=== PATIENT | female | born 1980 | race African-American/Black ===

== ENCOUNTER 2018-05-20 22:07 | Emergency (ER) | payer SELFPAY ==
[~2018-05-20] VITALS: Ht 177.8 cm; Wt 72.6 kg
--- OUTSIDE RECORDS SUMMARY | 2018-05-20 22:15 | XMS REPORT ---
Author NONA Andersen [facility] eClinicalWorks Address Unknown Phone Unavailable Care Team Providers Care Spooling Machine Operator Name Role Phone NONA CHOU CP Unavailable Allergies, Adverse Reactions, Alerts Substance Reaction Event Type N.K.D.A. Info Not Available Non Drug Allergy Problems Problem Type Condition Code Onset Dates Condition Status Assessment Trichomonal vaginitis A59.01 Active Assessment Other specified bacterial agents as the cause of diseases classified elsewhere B96.89 Active Assessment Screening for STD (sexually transmitted disease) Z11.3 Active Assessment Acute vaginitis N76.0 Active Medications Medication Code System Code Instructions Start Date End Date Status Dosage Metronidazole [facility] [address]-61 500 MG Orally BID Feb 13, 2016 Feb 20, 2016 1 tablet Procedures Procedure Coding System Code Date ACUTE HEPATITIS PANEL CPT-4 32393 Feb 13, 2016 No Charge CPT-4 33839 Feb 13, 2016 BLOOD SEROLOGY, QUALITATIVE CPT-4 02907 Feb 13, 2016 Office Visit, New Pt., Level 3 CPT-4 21974 Feb 13, 2016 TRICHOMONAS ASSAY W/OPTIC CPT-4 55733 Feb 13, 2016 CULTURE, BACTERIA, OTHER CPT-4 87344 Feb 13, 2016 VENIPUNCT, ROUTINE* CPT-4 12988 Feb 13, 2016 ONTIVEROS VAG, DNA, DIR PROBE CPT-4 08172 Feb 13, 2016 Vital Signs Date/Time: Feb 13, 2016 Cardiac Monitoring Heart Rate 84 bpm Weight 153.2 lbs Height 69 in BMI 22.62 Index Blood Pressure Diastolic 78 mmHg Blood Pressure Systolic 110 mmHg Results Name Result Date Reference Range Unit Abnormality Flag BACTERIAL VAGINOSIS (IN HOUSE) ----Lot # [id number] ----Exp date [id number] ----RESULTS Positive [id number] ----Control + [id number] ROUTINE VENIPUNCTURE TRICHOMONAS (IN HOUSE) ----Exp date [id number] ----Control + [id number] ----Lot # [id number] ----TRICHOMONAS Positive [id number] Summary Purpose eClinicalWorks Submission
--- OUTSIDE RECORDS SUMMARY | 2018-05-20 22:15 | XMS REPORT ---
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 Active 60110718 Problem Generalized anxiety disorder F41.1 Active 23611086 ALLERGIES No Known Allergies ENCOUNTERS Encounter Location Date Diagnosis [place] [address] [address] Feb, [facility] [address] [place] [id number] [place] [address] Feb, [facility] [address] [address] Jan, Cigarette nicotine dependence without complication F17.210 ; Yeast dermatitis B37.2 and Generalized anxiety disorder F41.1 [place] [address] [address] Sep, Rib pain R07.81 ; Cigarette nicotine dependence without complication F17.210 ; Generalized anxiety disorder F41.1 ; Screening for hyperlipidemia Z13.220 ; Screening for diabetes mellitus Z13.1 and Screening for other and unspecified deficiency anemia Z13.0 [place] [address] [address] Aug, Screening for STD sexually transmitted disease Z11.3 and Well woman exam with routine gynecological exam Z01.419 [place] [address] [place] [id number] [place] [address] Sep, Severe single current episode of major depressive disorder, 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.2 and Generalized anxiety disorder F41.1 [place] [address] [facility] [id number] [address] Sep, Screening for STD sexually transmitted disease Z11.3 ; Screening for diabetes mellitus (DM) Z13.1 ; Screening for lipid disorders Z13.220 and Well woman exam with routine gynecological exam Z01.419 [place] [address] [id number] [address] Jan, [facility] [address] [facility] [id number] [address] Jan, Screening for STD sexually transmitted disease Z11.3 ; Trichomonal vaginitis A59.01 ; Other specified bacterial agents as the cause of diseases classified elsewhere B96.89 and Acute vaginitis N76.0 IMMUNIZATIONS No Known Immunizations SOCIAL HISTORY Never Assessed REASON FOR VISIT Depression Charles Han MA PLAN OF CARE Activity Details Follow Up 4 Weeks Reason:smoking cessation VITAL SIGNS Height 69 in 2018-02-10 Weight 153.6 lbs 2018-02-10 Temperature 97.4 degrees Fahrenheit 2018-02-10 Heart Rate 96 bpm 2018-02-10 Respiratory Rate 18 2018-02-10 BMI 22.68 kg/m2 2018-02-10 Blood pressure systolic 118 mmHg 2018-02-10 Blood pressure diastolic 68 mmHg 2018-02-10 MEDICATIONS Medication Instructions Dosage Frequency Start Date End Date Duration Status Chantix Starting Month Juan Pablo 0.5 MG X 11 & 1 MG X 42 Orally as directed Days 1- 3: 0.5mg once daily, Days 4-7: 05mg twice daily. Days 8-30: 1mg twice daily Jan, Active HydrOXYzine HCl 25 MG Orally every 8 hrs 1 tablet as needed 8h Jan, 30 day(s) Active Fluconazole 150 MG Orally one time 1 tablet Jan, 1 dose Active RESULTS No Results PROCEDURES No Known procedures INSTRUCTIONS MEDICATIONS ADMINISTERED No Known Medications MEDICAL (GENERAL) HISTORY Type Description Date Surgical History section x3 Surgical History tubal ligation Hospitalization History child
--- OUTSIDE RECORDS SUMMARY | 2018-05-20 22:15 | XMS REPORT ---
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 Active 84587107 ALLERGIES No Known Allergies ENCOUNTERS Encounter Location Date Diagnosis [facility] [id number] [address] Sep, Severe single current episode of major depressive disorder, 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.2 and Generalized anxiety disorder F41.1 [facility] [address] [place] [address] Sep, Screening for STD sexually transmitted disease Z11.3 ; Screening for diabetes mellitus (DM) Z13.1 ; Screening for lipid disorders Z13.220 and Well woman exam with routine gynecological exam Z01.419 [place] [address] [address] Jan, [facility] [address] [place] [address] Jan, Screening for STD sexually transmitted disease Z11.3 ; Trichomonal vaginitis A59.01 ; Other specified bacterial agents as the cause of diseases classified elsewhere B96.89 and Acute vaginitis N76.0 IMMUNIZATIONS No Known Immunizations SOCIAL HISTORY Never Assessed REASON FOR VISIT Well Woman Exam-JARED Charles PLAN OF CARE Activity Details Follow Up 1 Year for Well woman with Ronal Reason: VITAL SIGNS Height 69 in 2016-09-26 Weight 156 lbs 2016-09-26 Temperature 98 degrees Fahrenheit 2016-09-26 Heart Rate 90 bpm 2016-09-26 Respiratory Rate 18 2016-09-26 BMI 23.03 kg/m2 2016-09-26 Blood pressure systolic 130 mmHg 2016-09-26 Blood pressure diastolic 70 mmHg 2016-09-26 MEDICATIONS Unknown Medications RESULTS Name Result Date Reference Range A1C 2016-09-26 Hemoglobin A1c 5.5 4.8-5.6 LIPID PANEL 2016-09-26 Cholesterol, Total 125 100-199 Triglycerides 64 0-149 HDL Cholesterol 67 >39 VLDL Cholesterol Nicolas 13 5-40 LDL Cholesterol Calc 45 0-99 TRICHOMONAS (IN HOUSE) 2016-09-26 TRICHOMONAS Negative Control + Lot # [id number] Exp date 10/2017 BACTERIAL VAGINOSIS (IN HOUSE) 2016-09-26 RESULTS Negative Control + Lot # [id number] Exp date 04/2017 CULTURE, GENITAL 2016-09-26 Genital Culture, Routine Final report Result 1 HEP C ANTIBODY (STATE) 2016-09-26 RESULTS non reactive SYPHILIS (STATE) 2016-09-26 HIV (STATE) 2016-09-26 GC/CHLAM PROBE (STATE) 2016-09-26 CHLAMYDIA negative GC negative HEP B SURFACE ANTIGEN (STATE) 2016-09-26 HEP B ANTIBODY non reactive HEP B ANTIBODY (RML) HEP B ANTIBODY (STATE) PROCEDURES Procedure Date Ordered Result Body Site No Charge September 26, 2016 LIPID PANEL September 26, 2016 CULTURE, BACTERIA, OTHER September 26, 2016 VENIPUNCT, ROUTINE* September 26, 2016 GLYCATED HEMOGLOBIN TEST September 26, 2016 TRICHOMONAS ASSAY W/OPTIC September 26, 2016 ONTIVEROS VAG, DNA, DIR PROBE September 26, 2016 INSTRUCTIONS MEDICATIONS ADMINISTERED No Known Medications MEDICAL (GENERAL) HISTORY Type Description Date Surgical History section x3 Surgical History tubal ligation Hospitalization History child
--- OUTSIDE RECORDS SUMMARY | 2018-05-20 22:15 | XMS REPORT ---
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 Active 12348277 ALLERGIES No Information ENCOUNTERS Encounter Location Date Diagnosis [address] [place] [address] Jun, [place] [id number] [place] [address] Sep, Severe single current episode of major depressive disorder, 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.2 and Generalized anxiety disorder F41.1 [place] [id number] [place] [address] Sep, Screening for STD sexually transmitted disease Z11.3 ; Screening for diabetes mellitus (DM) Z13.1 ; Screening for lipid disorders Z13.220 and Well woman exam with routine gynecological exam Z01.419 [address] [place] [address] Jan, [place] [address] [place] [address] Jan, Screening for STD sexually transmitted disease Z11.3 ; Trichomonal vaginitis A59.01 ; Other specified bacterial agents as the cause of diseases classified elsewhere B96.89 and Acute vaginitis N76.0 IMMUNIZATIONS No Known Immunizations SOCIAL HISTORY Never Assessed REASON FOR VISIT intake PLAN OF CARE Activity Details Follow Up prn Reason:Anxiety, anger, depression VITAL SIGNS MEDICATIONS Unknown Medications RESULTS No Results PROCEDURES Procedure Date Ordered Result Body Site Psych diagnostic evaluation, new patient September 27, 2016 INSTRUCTIONS MEDICATIONS ADMINISTERED No Known Medications MEDICAL (GENERAL) HISTORY Type Description Date Surgical History section x3 Surgical History tubal ligation Hospitalization History child
--- OUTSIDE RECORDS SUMMARY | 2018-05-20 22:15 | XMS REPORT ---
Author Author NONA CHOU [facility] Address [address] [place] [address] Care Team Providers Care Electrophysiology Scientist Name Role Phone NONA CHOU Unavailable PROBLEMS Unknown Problems ALLERGIES Unknown Allergies SOCIAL HISTORY No smoking Hx information available PLAN OF CARE VITAL SIGNS MEDICATIONS Medication Instructions Dosage Frequency Start Date End Date Duration Status Metronidazole Jan, Feb, Active RESULTS No Results PROCEDURES No Known procedures IMMUNIZATIONS No Known Immunizations
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
--- OUTSIDE RECORDS SUMMARY | 2018-05-20 22:15 | XMS REPORT ---
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.2 Active 02718208 Problem Generalized anxiety disorder F41.1 Active 84381035 ALLERGIES No Known Allergies ENCOUNTERS Encounter Location Date Diagnosis [place] [address] [address] Sep, Rib pain R07.81 ; Cigarette nicotine dependence without complication F17.210 ; Generalized anxiety disorder F41.1 ; Screening for hyperlipidemia Z13.220 ; Screening for diabetes mellitus Z13.1 and Screening for other and unspecified deficiency anemia Z13.0 [place] [address] [place] [id number] [place] [address] Aug, Screening for STD sexually transmitted disease Z11.3 and Well woman exam with routine gynecological exam Z01.419 [place] [address] [place] [id number] [place] [address] 14 Sep, 2016 Severe single current episode of major depressive disorder, 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.2 and Generalized anxiety disorder F41.1 [place] [address] [place] [id number] [place] [address] 13 Sep, 2016 Screening for STD sexually transmitted disease Z11.3 ; Screening for diabetes mellitus (DM) Z13.1 ; Screening for lipid disorders Z13.220 and Well woman exam with routine gynecological exam Z01.419 [place] [address] [place] [id number] [place] [address] Jan, [facility] [address] [facility] [id number] [place] [address] Jan, Screening for STD sexually transmitted disease Z11.3 ; Trichomonal vaginitis A59.01 ; Other specified bacterial agents as the cause of diseases classified elsewhere B96.89 and Acute vaginitis N76.0 IMMUNIZATIONS No Known Immunizations SOCIAL HISTORY Never Assessed REASON FOR VISIT Well Woman Exam-COSME Fox, Wants something to help her quit smoking PLAN OF CARE Activity Details Follow Up 1 Year Reason:annual well woman VITAL SIGNS Height 69 in 2017-09-08 Weight 149.3 lbs 2017-09-08 Temperature 98.9 degrees Fahrenheit 2017-09-08 Heart Rate 80 bpm 2017-09-08 Respiratory Rate 18 2017-09-08 BMI 22.05 kg/m2 2017-09-08 Blood pressure systolic 130 mmHg 2017-09-08 Blood pressure diastolic 72 mmHg 2017-09-08 MEDICATIONS No Known Medications RESULTS No Results PROCEDURES Procedure Date Ordered Result Body Site SPECIMEN HANDLING September 08, 2017 Bacterial Vaginosis In House September 08, 2017 VENIPUNCT, ROUTINE* September 08, 2017 No Charge September 08, 2017 TRICHOMONAS ASSAY W/OPTIC September 08, 2017 URINALYSIS, AUTO, W/O SCOPE September 08, 2017 CULTURE, BACTERIA, OTHER September 08, 2017 INSTRUCTIONS MEDICATIONS ADMINISTERED No Known Medications MEDICAL (GENERAL) HISTORY Type Description Date Surgical History section x3 Surgical History tubal ligation Hospitalization History child
--- NOTE | 2018-05-20 23:13 | NUR ---
pt sleeping in waiting room.
[2018-05-20 23:38] LABS: BILIRUBIN,URINE NEGATIVE (NEGATIVE); CLARITY,URINE CLEAR; COLOR,URINE YELLOW; GLUCOSE, URINE (UA) NEGATIVE (NEGATIVE); KETONES,URINE NEGATIVE (NEGATIVE); LEUKOCYTE ESTERASE ,URINE NEGATIVE (NEGATIVE); NITRITE,URINE NEGATIVE (NEGATIVE); PH,URINE 7 (5-9); PROTEIN,URINE NEGATIVE (NEGATIVE); UROBILINOGEN,URINE NORMAL (NORMAL)
[2018-05-20 23:47] LABS: BACTERIA,URINE TRACE /HPF; RBC,URINE 0-2 /HPF; SQUAMOUS EPITHELIAL CELL,UR RARE /HPF
[2018-05-21 00:55] LABS: BASOPHILS % (AUTO) 1 % (0-10); EOSINOPHILS # (AUTO) 0.2 10^3/uL (0.0-0.3); EOSINOPHILS % (AUTO) 2 % (0-10); HEMATOCRIT 37 % (35-52); HEMOGLOBIN 12.7 G/DL (11.5-16.0); LYMPHOCYTES # (AUTO) 2.7 X 10^3 (1.0-4.0); LYMPHOCYTES % (AUTO) 31 % (12-44); MEAN CORPUSCULAR HEMOGLOBIN 32 PG (25-34); MEAN CORPUSCULAR HGB CONC 34 G/DL (32-36); MEAN CORPUSCULAR VOLUME 92 FL (80-99); MEAN PLATELET VOLUME 8.7 FL (7.4-10.4); MONOCYTES # (AUTO) 0.9 X 10^3 (0.0-1.0); MONOCYTES % (AUTO) 10 % (0-12); NEUTROPHILS # (AUTO) 5.1 X 10^3 (1.8-7.8); NEUTROPHILS % (AUTO) 57 % (42-75); PLATELET COUNT 348 10^3/uL (130-400); RED CELL DISTRIBUTION WIDTH 13.1 % (10.0-14.5); WHITE BLOOD COUNT 8.8 10^3/uL (4.3-11.0)
[2018-05-21 01:13] LABS: ALANINE AMINOTRANSFERASE 10 U/L (0-55); ALBUMIN 3.9 GM/DL (3.2-4.5); ALKALINE PHOSPHATASE 32 U/L (40-136); AMYLASE 55 U/L (25-125); BILIRUBIN,TOTAL 0.3 MG/DL (0.1-1.0); BUN/CREATININE RATIO 20; CALCIUM 8.8 MG/DL (8.5-10.1); CARBON DIOXIDE 24 MMOL/L (21-32); CHLORIDE 107 MMOL/L (98-107); GFR ESTIMATED > 60; GLUCOSE 119 MG/DL (70-105); LIPASE 36 U/L (8-78); SODIUM 139 MMOL/L (135-145); TOTAL PROTEIN 6.2 GM/DL (6.4-8.2)
[2018-05-21] MEDS ORDERED: cefTRIAXone FOR IV USE 1,000 MG in WATER (STERILE) FOR INJECTION 10 ML IV ONE (01:30)
[2018-05-21] MEDS ORDERED: AZITHROMYCIN 250 MG TAB (ZITHROMAX) PO STA (01:30)
[2018-05-21] MEDS ORDERED: AZITHROMYCIN 250 MG TAB (ZITHROMAX) PO ONE (01:41)
[2018-05-21] MEDS ORDERED: WATER (STERILE) FOR INJECTION 10 ML ONE (01:42)
[2018-05-21] MEDS ORDERED: cefTRIAXone 1,000 MG IV (ROCEPHIN) VIAL ONE (01:42)
--- NOTE | 2018-05-21 01:46 | ED Abdominal Pain ---
General Chief Complaint: Abdominal/GI Problems Stated Complaint: ABD CRAMPING Nursing Triage Note: lower abdominal pain, urinary frequency. Sepsis Screen: No Definite Risk Allergies and Home Medications Allergies Coded Allergies: No Known Drug Allergies (Unverified , 05/20/18) Home Medications No Active Prescriptions or Reported Meds Past Xowcczg-Kfmhme-Qlnnha Hx Patient Social History Alcohol Use: Rarely Uses Recreational Drug Use: Yes Drug of Choice: cannibus Smoking Status: Current Everyday Smoker Type Used: Cigarettes 2nd Hand Smoke Exposure: Yes Recent Foreign Travel: No Contact w/Someone Who Travel: No Recent Infectious Disease Expo: No Recent Hopitalizations: No Seasonal Allergies Seasonal Allergies: No Past Medical History Surgeries: Yes Section Respiratory: No Cardiac: No Neurological: No Last Menstrual Period: May 06, 2018 Genitourinary: No Gastrointestinal: No Musculoskeletal: No Endocrine: No HEENT: No Cancer: No Psychosocial: No Integumentary: No Blood Disorders: No Physical Exam Vital Signs Vital Signs - First Documented 05/20/18 23:13 Temp 96.9 Pulse 79 Resp 18 B/P (MAP) 126/45 (72) Pulse Ox 100 O2 Delivery Room Air Capillary Refill : Less Than 3 Seconds Height/Weight/BMI Height: 5'10.00" Weight: 160lbs. oz. 72.656381rg; BMI Method:Stated Progress/Results/Core Measures Results/Orders Lab Results Laboratory Tests Test 05/20/18 23:15 05/21/18 00:50 Range/Units Urine Color YELLOW Urine Clarity CLEAR Urine pH 7 5-9 Urine Specific [place] 1.010 L 1.016-1.022 Urine Protein NEGATIVE NEGATIVE Urine Glucose (UA) NEGATIVE NEGATIVE Urine Ketones NEGATIVE NEGATIVE Urine Nitrite NEGATIVE NEGATIVE Urine Bilirubin NEGATIVE NEGATIVE Urine Urobilinogen NORMAL NORMAL MG/DL Urine Leukocyte Esterase NEGATIVE NEGATIVE Urine RBC (Auto) 3+ H NEGATIVE Urine RBC 0-2 /HPF Urine WBC NONE /HPF Urine Squamous Epithelial Cells RARE /HPF Urine Crystals NONE /LPF Urine Bacteria TRACE /HPF Urine Casts NONE /LPF Urine Mucus NEGATIVE /LPF Urine Culture Indicated NO Urine Test NEGATIVE NEGATIVE White Blood Count 8.8 4.3-11.0 10^3/uL Red Blood Count 4.01 L 4.35-5.85 10^6/uL Hemoglobin 12.7 11.5-16.0 G/DL Hematocrit 37 35-52 % Mean Corpuscular Volume 92 80-99 FL Mean Corpuscular Hemoglobin 32 25-34 PG Mean Corpuscular Hemoglobin Concent 34 32-36 G/DL Red Cell Distribution Width 13.1 10.0-14.5 % Platelet Count 348 130-400 10^3/uL Mean Platelet Volume 8.7 7.4-10.4 FL Neutrophils (%) (Auto) 57 42-75 % Lymphocytes (%) (Auto) 31 12-44 % Monocytes (%) (Auto) 10 0-12 % Eosinophils (%) (Auto) 2 0-10 % Basophils (%) (Auto) 1 0-10 % Neutrophils # (Auto) 5.1 1.8-7.8 X 10^3 Lymphocytes # (Auto) 2.7 1.0-4.0 X 10^3 Monocytes # (Auto) 0.9 0.0-1.0 X 10^3 Eosinophils # (Auto) 0.2 0.0-0.3 10^3/uL Basophils # (Auto) 0.0 0.0-0.1 10^3/uL Sodium Level 139 135-145 MMOL/L Potassium Level 4.0 3.6-5.0 MMOL/L Chloride Level 107 98-107 MMOL/L Carbon Dioxide Level 24 21-32 MMOL/L Anion Gap 8 5-14 MMOL/L Blood Urea Nitrogen 16 7-18 MG/DL Creatinine 0.80 0.60-1.30 MG/DL Estimat Glomerular Filtration Rate > 60 BUN/Creatinine Ratio 20 Glucose Level 119 H 70-105 MG/DL Calcium Level 8.8 8.5-10.1 MG/DL Corrected Calcium 8.9 8.5-10.1 MG/DL Total Bilirubin 0.3 0.1-1.0 MG/DL Aspartate Amino Transf (AST/SGOT) 14 5-34 U/L Alanine Aminotransferase (ALT/SGPT) 10 0-55 U/L Alkaline Phosphatase 32 L 40-136 U/L Total Protein 6.2 L 6.4-8.2 GM/DL Albumin 3.9 3.2-4.5 GM/DL Amylase Level 55 25-125 U/L Lipase 36 8-78 U/L My Orders Orders - GERTRUDE,TORY K DO Ua Culture If Indicated (05/20/18 23:15) Hcg,Qualitative Urine (05/20/18 23:20) Saline Lock/Iv-Start (05/21/18 00:34) Ct Abd/Pelvis Wo(Kidney Stone) (05/21/18 00:34) Amylase (05/21/18 00:34) Cbc With Automated Diff (05/21/18 00:34) Comprehensive Metabolic Panel (05/21/18 00:34) Lipase (05/21/18 00:34) Ceftriaxone For Iv Use (Rocephin For I (05/21/18 01:30) Azithromycin Tablet (Zithromax Tablet) (05/21/18 01:30) Vital Signs/I&O 05/20/18 23:13 Temp 96.9 Pulse 79 Resp 18 B/P (MAP) 126/45 (72) Pulse Ox 100 O2 Delivery Room Air Blood Pressure Mean: 72 Departure Impression Primary Impression: Lower abdominal pain Additional Impressions: Constipation Cholelithiasis Disposition: HOME, SELF-CARE Condition: Stable Departure-Patient Inst. Referrals: [facility] (PCP/Family) Primary Care Physician Patient Instructions: Acute Abdomen (Belly Pain), Adult (DC), Gallstones (DC), Constipation, Adult (DC) Add. Discharge Instructions: LOTS OF CLEAR LIQUIDS--WATER, BROTH, JELLO, GATORADE TAKE MIRALAX EVERY 1-2 HOURS UNTIL YOUR STOOLS ARE CLEAR , THEN TAKE ONCE DAILY TYLENOL AND MOTRIN NEEDED FOR PAIN FOLLOW UP WITH YOUR DR IN 2-3 DAYS IF NO BETTER All discharge instructions reviewed with patient and/or family. Voiced understanding. Scripts No Active Prescriptions or Reported Meds TORY LOREDO DO May 21, 2018 01:46
[2018-05-21 01:56] VITALS: BP 109/40
--- NOTE | 2018-05-21 01:56 | NUR ---
pt vomitted after recieving dc instructions but stated she felt better et. wished to go home.
--- NOTE | 2018-05-21 07:55 | Diagnostic Imaging Report ---
PROCEDURE: CT urinary tract, rule out kidney stone. TECHNIQUE: Multiple contiguous axial images were obtained through the abdomen and pelvis without the use of intravenous contrast. INDICATION: Pelvic pain and urinary frequency No previous studies available at this time for comparison. There is mild atelectasis in the left lung base. No focal hepatic abnormalities identified. Punctate calcifications seen in the dependent portion of the gallbladder. Gallbladder is otherwise partially contracted which limits evaluation. No pancreatic abnormalities identified. There are occasional calcified granulomas in the spleen. There is no evidence of adrenal gland abnormality. Unenhanced images of the kidneys are unremarkable without evidence of hydronephrosis. There is no free fluid seen within the abdomen or pelvis. There is a large amount of stool throughout the colon. Appendix is not well seen however there is no evidence of localized inflammation. There are punctate calcifications bilaterally in the pelvis. These are likely due to calcified phleboliths or bowel content. No definite ureteric stone is identified. The bladder is distended without evidence of intraluminal filling defect on the noncontrasted images. IMPRESSION: No evidence of hydronephrosis or definite urinary tract calculus. Calcifications bilaterally in the pelvis are likely due to phleboliths although if symptoms persist, consideration could be given to contrast enhanced imaging for ureteric identification. Dictated by: Dictated on workstation # [id number]
== END 2018-05-21 01:58 | disposition home or self-care (01) ==
LOC: ER 22:09
DX: K59.00 Constipation, unspecified (principal); K80.20 Calculus of gallbladder without cholecystitis without obstruction; F12.10 Cannabis abuse, uncomplicated; F17.210 Nicotine dependence, cigarettes, uncomplicated; Z98.890 Other specified postprocedural states
CPT/HCPCS: 36415; 74176; 80053; 81000; 82150; 83690; 84703; 85025; 87070; 87205; 87210; 87491; 87591